=== PATIENT | female | born 1995 | race African-American/Black ===

== ENCOUNTER 2020-10-28 12:55 | Emergency (ER) | payer SELFPAY ==
[2020-10-28] MEDS ORDERED: Acetaminophen 500 MG TAB ONE (13:38)
[2020-10-28] MEDS ORDERED: Metoclopramide HCl 10 MG/2 ML VIAL ONE (13:38)
[2020-10-28] MEDS ORDERED: Dexamethasone 10 MG/ML VIAL ONE (15:13)
[2020-10-28] MEDS ORDERED: Ketorolac Tromethamine 30 MG/ML VIAL ONE (15:13)
[2020-10-28] MEDS ORDERED: diphenhydrAMINE 50 MG/ML VIAL ONE (15:13)
[2020-10-28 15:20] LABS: Bilirubin Negative (Negative); Blood, Urine Trace (Negative); Clarity Turbid (Clear); Glucose, Urine (Dipstick) Normal (Negative); Ketone, Urine 20 mg/dL (Negative); Leukocyte 250 Leu/uL (Negative); Nitrite 2+ (Negative); Protein, Urine (Dipstick) Negative (Neg-Trace); RBC/HPF 0-3 HPF (0-3); Urobilinogen Normal mg/dL (Less than 2); pH, Urine 5.5 (5.0-9.0)
[2020-10-28 15:21] LABS: Bacteria/HPF 2+ HPF (None Seen)
[2020-10-28 15:32] LABS: Pregnancy Test - Urine (BHCG) Negative (Negative); Pregu Control Background? CLEAR/WHITE (CLR/WHITE); Pregu Control Bar Appear? YES (CONTROL BAR)
== END 2020-10-28 16:35 | disposition home or self-care (01) ==
LOC: ERS 12:55
DX: R51.9 Headache, unspecified (principal); N39.0 Urinary tract infection, site not specified; J45.909 Unspecified asthma, uncomplicated; Z72.0 Tobacco use
CPT/HCPCS: 81003; 81015; 81025; 87077; 87086; 87186; 96365; 96366; 96375; J1100; J1200; J1885; J2765